=== PATIENT | female | born 1970 | race American Indian/Alaskan Native ===

== ENCOUNTER 2018-01-10 14:54 | Emergency (ER) | payer SELFPAY ==
[2018-01-10 15:13] VITALS: BP 166/92
[2018-01-10 16:20] LABS: Amorphous Crystals,Urine Few; Bilirubin,Urine NEG (Negative); Blood,Urine MOD (Negative); Color,Urine Yellow (Yellow)
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
== END 2018-01-10 17:15 | disposition home or self-care (01) ==
LOC: ED 14:54
DX: N39.0 Urinary tract infection, site not specified (principal); G43.909 Migraine, unspecified, not intractable, without status migrainosus; R05 Cough; I10 Essential (primary) hypertension; F41.9 Anxiety disorder, unspecified; Z88.2 Allergy status to sulfonamides; Z88.6 Allergy status to analgesic agent
CPT/HCPCS: 81001; 99283